=== PATIENT | female | born 1960 | race Two or more races ===

== ENCOUNTER 2021-06-04 10:16 | Inpatient (IN) | payer MEDICAID, OTHER ==
[~2021-06-04] VITALS: Ht 165.1 cm; Wt 71.4 kg
[2021-06-04] MEDS ORDERED: DexAMETHasone 4 MG TAB PO ONE (11:00)
[2021-06-04] MEDS ORDERED: AZITHROMYCIN 500MG/ 250ML 250 ML IV ONE (11:00)
[2021-06-04] MEDS ORDERED: DOXYCYCLINE 100 MG TAB/CAP PO ONE (11:00)
[2021-06-04] MEDS ORDERED: IOHEXOL 350 MG/ML 100ML IJ ONE (14:30)
[2021-06-04 14:47] LABS: Basophils # (auto) 0 10 ^3/uL (0-0.2); Basophils % (auto) 0.5 % (0.0-2.0); Eosinophils # (auto) 0 10 ^3/uL (0-0.8); Hematocrit 42.6 % (36.0-46.0); Hemoglobin 14.5 g/dL (12.2-16.2); Lymphocytes # (auto) 0.5 10 ^3/uL (0.4-5.4); Lymphocytes % (auto) 16.1 % (10.0-50.0); Mean Corpuscular Hemoglobin 32.2 pg (28.0-32.0); Mean Corpuscular Hgb Conc. 34.1 g/dL (32.0-36.0); Mean Corpuscular Volume 94.5 fL (80.0-100.0); Monocytes # (auto) 0.1 10 ^3/uL (0-1.3); Monocytes % (auto) 2.7 % (0.0-12.0); Neutrophils # (auto) 2.4 10 ^3/uL (1.6-8.6); Neutrophils % (auto) 80.7 % (37.0-80.0); Nucleated Red Blood Cells % 0.1 %; Red Blood Cells 4.51 10^6/uL (4.0-5.20); Red Cell Distribution Width 12.5 % (11.8-14.3)
[2021-06-04 14:54] LABS: Albumin 3.1 g/dL (3.4-5.0); Anion Gap 5 (5-15); Blood Urea Nitrogen 20 mg/dL (7-18); Calcium 8.2 mg/dL (8.5-10.1); Carbon Dioxide 28 mmol/L (21-32); Chloride 100 mmol/L (98-107); Glucose 166 mg/dL (74-106); Potassium 4.2 mmol/L (3.5-5.1); Sodium 133 mmol/L (136-145)
[2021-06-04 15:00] LABS: Alanine Aminotransferase 36 U/L (13-56); Alkaline Phosphatase 62 U/L (45-117); Aspartate Aminotransferase 36 U/L (15-37); BUN/Creatinine Ratio 24.4; Bilirubin, Total 0.3 mg/dL (0.2-1.0); GFR African American 92 mL/min; GFR Non-African American 76 mL/min; Total Protein 6.6 g/dL (6.4-8.2)
[2021-06-04] MEDS ORDERED: guaiFENesin-DM 100/10mg/5ml SYR PO PRN (16:00)
[2021-06-04] MEDS ORDERED: ACETAMINOPHEN 500 MG TAB PO PRN (16:00)
[2021-06-04] MEDS ORDERED: MORPHINE SULFATE INJECTION 2 MG/ML SYRG IV PRN (16:00)
[2021-06-04] MEDS ORDERED: NITROGLYCERIN 0.4 MG SL TAB SL PRN (16:00)
[2021-06-04 16:19] LABS: Urine Blood 2+ /uL (Negative); Urine Specific Gravity 1.021 (1.001-1.035); Urine WBC 5 /hpf (0 - 5)
[2021-06-04 16:21] LABS: Urine Bacteria FEW /hpf (None Seen)
[2021-06-04 18:23] VITALS: BP 115/76
[2021-06-04] MEDS: BUDESONIDE (INHALATION) 180 MCG IH IN SCH (19:54)
[2021-06-04] MEDS: ENOXAPARIN SOD 40 MG/0.4 ML SYRINGE SC SCH (21:36)
[2021-06-04 22:00] VITALS: BP 115/76
[2021-06-04] MEDS: HYDROcodone-ACET 5/325MG TAB PO PRN (23:06)
[2021-06-05] VITALS (7 sets, daily range): BP systolic 103–115; BP diastolic 66–76
[2021-06-05 05:45] LABS: Basophils # (auto) 0 10 ^3/uL (0-0.2); Basophils % (auto) 0.4 % (0.0-2.0); Eosinophils # (auto) 0 10 ^3/uL (0-0.8); Hemoglobin 14.8 g/dL (12.2-16.2); Lymphocytes # (auto) 0.9 10 ^3/uL (0.4-5.4); Lymphocytes % (auto) 21.6 % (10.0-50.0); Mean Corpuscular Hemoglobin 32.4 pg (28.0-32.0); Mean Corpuscular Hgb Conc. 34.4 g/dL (32.0-36.0); Mean Corpuscular Volume 94.3 fL (80.0-100.0); Monocytes # (auto) 0.3 10 ^3/uL (0-1.3); Monocytes % (auto) 7.7 % (0.0-12.0); Neutrophils # (auto) 2.9 10 ^3/uL (1.6-8.6); Neutrophils % (auto) 70.3 % (37.0-80.0); Red Blood Cells 4.56 10^6/uL (4.0-5.20); Red Cell Distribution Width 12.8 % (11.8-14.3); White Blood Cell 4.2 10^3/uL (4.4-10.8)
[2021-06-05 06:00] LABS: Albumin 2.8 g/dL (3.4-5.0); Calcium 8.4 mg/dL (8.5-10.1); Potassium 4.1 mmol/L (3.5-5.1)
[2021-06-05 06:02] LABS: BUN/Creatinine Ratio 27.1
[2021-06-05 06:05] LABS: Bilirubin, Total 0.3 mg/dL (0.2-1.0); Total Protein 6.5 g/dL (6.4-8.2)
[2021-06-05] MEDS: BUDESONIDE (INHALATION) 180 MCG IH IN SCH ×2 (06:44→18:53)
[2021-06-05] MEDS: ALBUTEROL SULF HFA 90MCG INH 200DOSE IN PRN ×2 (06:49→18:53)
[2021-06-05] MEDS ORDERED: DexAMETHasone SOD PHOS 10MG/1ML VIAL INJ IV SCH (10:00)
[2021-06-05] MEDS: cefTRIAXone 1GM/50ML D5W 50 ML IV SCH (10:04)
[2021-06-05] MEDS: AZITHROMYCIN 500MG/ 250ML 250 ML IV SCH (10:04)
[2021-06-05] MEDS: CHOLECALCIFEROL (VITD3) 2,000 UNIT CAP/TAB PO SCH (10:05)
[2021-06-05] MEDS: ASCORBIC ACID 1,000 MG TAB PO SCH (10:05)
[2021-06-05] MEDS: ENOXAPARIN SOD 40 MG/0.4 ML SYRINGE SC SCH ×2 (10:05→21:44)
[2021-06-05] MEDS: ZINC SULFATE 220mg CAP or TAB PO SCH (10:05)
[2021-06-05] MEDS ORDERED: FUROSEMIDE 20 MG TAB PO ONE (12:00)
[2021-06-05] MEDS: HYDROcodone-ACET 5/325MG TAB PO PRN (20:44)
[2021-06-06 05:00] VITALS: BP 119/79
[2021-06-06] MEDS: IVERMECTIN 3 MG TAB PO SCH (06:56)
[2021-06-06] MEDS: cefTRIAXone 1GM/50ML D5W 50 ML IV SCH (08:39)
[2021-06-06] MEDS: AZITHROMYCIN 500MG/ 250ML 250 ML IV SCH (08:40)
[2021-06-06] MEDS: ZINC SULFATE 220mg CAP or TAB PO SCH (08:40)
[2021-06-06] MEDS: CHOLECALCIFEROL (VITD3) 2,000 UNIT CAP/TAB PO SCH (08:40)
[2021-06-06] MEDS: ASCORBIC ACID 1,000 MG TAB PO SCH (08:40)
[2021-06-06] MEDS: ENOXAPARIN SOD 40 MG/0.4 ML SYRINGE SC SCH ×2 (08:41→21:47)
[2021-06-06] MEDS: FUROSEMIDE 20 MG TAB PO SCH (08:43)
[2021-06-06 09:00] VITALS: BP 107/61
[2021-06-06] MEDS: BUDESONIDE (INHALATION) 180 MCG IH IN SCH ×2 (09:17→22:09)
[2021-06-06] MEDS: ALBUTEROL SULF HFA 90MCG INH 200DOSE IN PRN ×2 (09:17→22:09)
[2021-06-06 13:00] VITALS: BP 93/47
[2021-06-06] MEDS ORDERED: DexAMETHasone SOD PHOS 10MG/1ML VIAL INJ IV ONE (15:45)
[2021-06-06 17:00] VITALS: BP 118/72
[2021-06-06] MEDS: PROMETHAZINE W/CODEINE 5 ML ORAL SYRUP PO PRN (20:23)
[2021-06-06 22:34] VITALS: BP 103/53
[2021-06-07 05:00] VITALS: BP 93/53
[2021-06-07] MEDS: IVERMECTIN 3 MG TAB PO SCH (06:36)
[2021-06-07 09:00] VITALS: BP 102/69
[2021-06-07] MEDS: cefTRIAXone 1GM/50ML D5W 50 ML IV SCH (09:31)
[2021-06-07] MEDS: ASCORBIC ACID 1,000 MG TAB PO SCH (09:32)
[2021-06-07] MEDS: CHOLECALCIFEROL (VITD3) 2,000 UNIT CAP/TAB PO SCH (09:32)
[2021-06-07] MEDS: FUROSEMIDE 20 MG TAB PO SCH (09:32)
[2021-06-07] MEDS: ZINC SULFATE 220mg CAP or TAB PO SCH (09:33)
[2021-06-07] MEDS: DexAMETHasone SOD PHOS 10MG/1ML VIAL INJ IV SCH (09:34)
[2021-06-07] MEDS: ENOXAPARIN SOD 40 MG/0.4 ML SYRINGE SC SCH ×2 (09:35→21:19)
[2021-06-07] MEDS: AZITHROMYCIN 500MG/ 250ML 250 ML IV SCH (10:01)
[2021-06-07] MEDS: ALBUTEROL SULF HFA 90MCG INH 200DOSE IN PRN ×2 (10:35→22:15)
[2021-06-07] MEDS: BUDESONIDE (INHALATION) 180 MCG IH IN SCH ×2 (10:35→22:15)
[2021-06-07] MEDS ORDERED: ALBUAER3 IN (12:36)
[2021-06-07] MEDS ORDERED: DEX4T PO (12:36)
[2021-06-07] MEDS ORDERED: AZIT250T8 PO (12:36)
[2021-06-07] MEDS ORDERED: ASCO10003 PO (12:36)
[2021-06-07] MEDS ORDERED: CHOL1CAP47 PO (12:36)
[2021-06-07] MEDS ORDERED: ZINC220T6 PO (12:36)
[2021-06-07] MEDS ORDERED: ASPI1TAB20 PO (12:36)
[2021-06-07 13:00] VITALS: BP 106/64
[2021-06-07 17:00] VITALS: BP 104/66
[2021-06-07] MEDS: PROMETHAZINE W/CODEINE 5 ML ORAL SYRUP PO PRN (21:20)
[2021-06-07 22:00] VITALS: BP 97/60
[2021-06-07 22:16] VITALS: BP 104/66
[2021-06-08 05:30] VITALS: BP 91/53
[2021-06-08] MEDS: IVERMECTIN 3 MG TAB PO SCH (06:15)
[2021-06-08] MEDS: ALBUTEROL SULF HFA 90MCG INH 200DOSE IN PRN (06:52)
[2021-06-08] MEDS: BUDESONIDE (INHALATION) 180 MCG IH IN SCH (06:52)
[2021-06-08 08:00] VITALS: BP 106/70
[2021-06-08] MEDS: DexAMETHasone SOD PHOS 10MG/1ML VIAL INJ IV SCH (08:52)
[2021-06-08] MEDS: ZINC SULFATE 220mg CAP or TAB PO SCH (08:52)
[2021-06-08] MEDS: cefTRIAXone 1GM/50ML D5W 50 ML IV SCH (08:52)
[2021-06-08] MEDS: CHOLECALCIFEROL (VITD3) 2,000 UNIT CAP/TAB PO SCH (08:53)
[2021-06-08] MEDS: ENOXAPARIN SOD 40 MG/0.4 ML SYRINGE SC SCH (08:53)
[2021-06-08] MEDS: ASCORBIC ACID 1,000 MG TAB PO SCH (08:53)
[2021-06-08 09:00] VITALS: BP 106/70
[2021-06-08] MEDS: FUROSEMIDE 20 MG TAB PO SCH (09:15)
[2021-06-08] MEDS ORDERED: POTASSIUM CHL 10 Meq TABLET PO ONE (10:00)
[2021-06-08] MEDS: AZITHROMYCIN 500MG/ 250ML 250 ML IV SCH (10:21)
[2021-06-08] MEDS: PROMETHAZINE W/CODEINE 5 ML ORAL SYRUP PO PRN (12:15)
[2021-06-08 13:00] VITALS: BP 102/58
== END 2021-06-08 14:00 | disposition home or self-care (01) | DRG 177 ==
LOC: ER 10:16 → TELE 15:55 → TELE-EAST 18:05
PROVIDERS: ADMIT Nurse Practitioner Acute Care; ATTEND Internal Medicine
DX: U07.1 COVID-19 (principal); J96.01 Acute respiratory failure with hypoxia; J12.82 Pneumonia due to coronavirus disease 2019; E44.1 Mild protein-calorie malnutrition; I47.2 Ventricular tachycardia; D72.819 Decreased white blood cell count, unspecified; Z90.710 Acquired absence of both cervix and uterus; Z68.26 Body mass index [BMI] 26.0-26.9, adult
CPT/HCPCS: 36415; 36600; 71045; 71275; 80053; 81001; 82728; 82805; 84132; 84484; 85025; 85379; 86141; 87040; 87426; 94640; 96365; 96372; 99291; G0378; J0696; J1100